=== PATIENT | male | born 1965 | race African-American/Black ===

== ENCOUNTER 2018-04-09 04:55 | Inpatient (IN) | payer MEDICARE, OTHER ==
[~2018-04-09] VITALS: Ht 170.2 cm; Wt 72.6 kg
[2018-04-09] VITALS (32 sets, daily range): BP systolic 107–157; BP diastolic 71–95
[2018-04-09] MEDS ORDERED: LORazepam Inj 2mg/ml 1ml ONE (05:35)
[2018-04-09] MEDS ORDERED: DiphenhydrAMINE 50mg/ml Inj ONE (05:36)
[2018-04-09] MEDS ORDERED: Haloperidol 5mg/ml Inj ONE (05:36)
[2018-04-09] MEDS ORDERED: LORazepam Inj 2mg/ml 1ml IM ONE (05:45)
[2018-04-09] MEDS ORDERED: DiphenhydrAMINE 50mg/ml Inj IM ONE (05:45)
[2018-04-09] MEDS ORDERED: Haloperidol 5mg/ml Inj IM ONE (05:45)
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
[2018-04-09] MEDS ORDERED: Midazolam 2mg/2ml Inj IVP ONE (07:00)
[2018-04-09 07:48] LABS: BASOPHILS % (AUTO) 0.9 % (0.0-2.0); EOSINOPHILS % (AUTO) 1.2 % (0.0-3.0); HEMATOCRIT 42.1 % (42.0-52.0); HEMOGLOBIN 14.4 G/DL (14.2-18.0); LYMPHOCYTES % (AUTO) 24.2 % (20.0-45.0); MEAN CORPUSCULAR VOLUME 97 FL (80-99); MONOCYTES % (AUTO) 6.8 % (1.0-10.0); NEUTROPHILS % (AUTO) 66.9 % (45.0-75.0); PLATELET COUNT 290 K/UL (150-450); RED BLOOD COUNT 4.32 M/UL (4.70-6.10); RED CELL DISTRIBUTION WIDTH 12.6 % (11.6-14.8); WHITE BLOOD COUNT 11.2 K/UL (4.8-10.8)
--- NOTE | 2018-04-09 07:54 | Diagnostic Imaging Report ---
EXAM: CT Head Without Intravenous Contrast CLINICAL HISTORY: AMS TECHNIQUE: Axial computed tomography images of the head/brain without intravenous contrast. CTDI is 70 mGy and DLP is 1500 mGy-cm. One or more of the following dose reduction techniques were used: automated exposure control, adjustment of the mA and/or kV according to patient size, use of iterative reconstruction technique. COMPARISON: None. FINDINGS: Brain: No CT evidence of acute infarct. 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 No acute intracranial hemorrhage. No mass effect or midline shift. Chronic microangiopathic white matter disease. Ventricles: Unremarkable. No ventriculomegaly. Bones/joints: Unremarkable. No acute fracture. Soft tissues: Unremarkable. Sinuses: Mild chronic sinus disease. Mastoid air cells: Unremarkable as visualized. No mastoid effusion. IMPRESSION: No acute findings.
[2018-04-09 08:25] LABS: ANION GAP 9 mmol/L (5-15); BLOOD UREA NITROGEN 11 mg/dL (7-18); CALCIUM 9.1 MG/DL (8.5-10.1); CARBON DIOXIDE 27 MMOL/L (21-32); CHLORIDE 109 MMOL/L (98-107); CREATININE 1.2 MG/DL (0.55-1.30); POTASSIUM 3.9 MMOL/L (3.5-5.1); SODIUM 145 MMOL/L (136-145)
[2018-04-09 08:30] LABS: ALANINE AMINOTRANSFERASE 18 U/L (12-78); ALBUMIN 4.1 G/DL (3.4-5.0); ALKALINE PHOSPHATASE 73 U/L (46-116); ASPARTATE AMINO TRANSFERASE 35 U/L (15-37); BILIRUBIN,TOTAL 0.4 MG/DL (0.2-1.0)
[2018-04-09] MEDS ORDERED: Zolpidem 5mg tab ORAL PRN (17:30)
[2018-04-09] MEDS ORDERED: LORazepam Inj 2mg/ml 1ml IV PRN (17:30)
[2018-04-09] MEDS ORDERED: Milk of Magnesia 30ml Ud ORAL PRN (17:30)
[2018-04-09] MEDS: D5 1/2NS 1,000 ML IV SCH (17:42)
[2018-04-10] VITALS (7 sets, daily range): BP systolic 143–168; BP diastolic 92–111
[2018-04-10] MEDS: D5 1/2NS 1,000 ML IV SCH ×2 (06:30→18:27)
--- NOTE | 2018-04-10 08:17 | History & Physical ---
History and Physical History & Physicial Hp dictated # [id number] Demar Blnaton MD April 10, 2018 08:17
[2018-04-10] MEDS: Thiamine 100mg tab ORAL SCH (08:59)
[2018-04-10] MEDS ORDERED: D5 1/2NS 1000ml IV ONE (09:56)
[2018-04-10] MEDS ORDERED: HYDROcodone/Acetamin 10/325 tab ORAL PRN (15:00)
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
[2018-04-10] MEDS: Lisinopril 20mg tab ORAL SCH (18:26)
[2018-04-11 04:00] VITALS: BP 164/103
[2018-04-11 07:57] VITALS: BP 150/100
[2018-04-11] MEDS: Lisinopril 20mg tab ORAL SCH (08:06)
[2018-04-11] MEDS: Thiamine 100mg tab ORAL SCH (08:07)
[2018-04-11] MEDS: D5 1/2NS 1,000 ML IV SCH (10:00)
--- NOTE | 2018-04-11 11:49 | Diagnostic Imaging Report ---
Indication: pain Right hand pain Findings: 3 views of the right hand were obtained. No acute fracture or malalignment is identified. Articular irregularities are noted involving the MCP joint of the thumb consistent with arthrosis. Similar findings involving several of the distal interphalangeal joints. There is a small avulsion type injury along the dorsal aspect of the second DIP joint. This may be posttraumatic and is probably old. IMPRESSION: No acute injury identified. Mild osteoarthrosis
[2018-04-11 11:56] VITALS: BP 149/90
--- NOTE | 2018-04-11 11:56 | Consultation ---
History of Present Illness General Date patient seen: April 10, 2018 Chief Complaint: Alcohol Intoxication Present Illness HPI 52-year-old male, with history of alcohol dependence and depression who was brought in to the emergency room by paramedics. The patient was intoxicated and confused. the pt was admitted to medical floor for medical stabilization. the pt was not able to provide hx. the pt didn't endorse si/hi. the pt did not endorse psychotic sxs. Allergies: Coded Allergies: No Known Allergies (Unverified , 04/09/18) Patient History Limited by: medical condition History Provided By: Patient, Medical Record, PMD Healthcare decision maker Resuscitation status Full Code Advanced Directive on File Past Medical/Surgical History Past Medical/Surgical History: (1) Acute alcoholic intoxication (2) Drug abuse (3) Alcohol abuse (4) Encephalopathy (5) Altered mental status Review of Systems Psychiatric: Reports: prior hx, anxiety, depressed feelings, emotional problems , hallucinations Physical Exam General Appearance: WD/WN, no apparent distress, confused, agitated Last 24 Hour Vital Signs Date Time Temp Pulse Resp B/P (MAP) Pulse Ox O2 Delivery O2 Flow Rate FiO2 04/11/18 08:06 150/100 04/11/18 07:57 98.1 88 21 150/100 97 Room Air 98.1 04/11/18 04:00 98.1 72 20 164/103 100 98.1 04/10/18 20:00 97.9 76 20 163/111 100 97.9 04/10/18 18:26 168/109 04/10/18 16:13 97.7 04/10/18 16:00 98.8 80 20 168/109 98 Room Air 98.8 04/10/18 15:14 97.7 04/10/18 12:00 97.7 80 20 166/106 98 Room Air 97.7 Intake and Output 04/10/18 04/11/18 19:00 07:00 Intake Total 1025 ml 0 ml Balance 1025 ml 0 ml Intake Oral 200 ml IV Total 825 ml 0 ml # Voids 3 5 # Bowel Movements 1 Height (Feet): 5 Height (Inches): 7.00 Weight (Pounds): 160 Medications Current Medications Medications (Trade) Dose Ordered Sig/Sarah Route PRN Reason Start Time Stop Time Status Last Admin Dose Admin Acetaminophen (Tylenol) 650 mg Q4H PRN ORAL Mild Pain (Pain Scale 1-3) 04/09/18 17:30 05/09/18 17:29 Acetaminophen/ Hydrocodone Bitart ([place] 10/325) 1 tab Q4H PRN ORAL PAIN 4-10 04/10/18 15:00 04/17/18 14:59 04/10/18 15:14 Dextrose (Dextrose 50%) 25 ml STAT PRN IV Hypoglycemia 04/09/18 17:30 05/09/18 17:29 Dextrose (Dextrose 50%) 50 ml STAT PRN IV Hypoglycemia 04/09/18 17:30 05/09/18 17:29 Dextrose/Sodium Chloride 1,000 ml @ 75 mls/hr [id number] IV 04/09/18 18:00 05/09/18 17:59 04/10/18 18:27 Diazepam (Valium) 10 mg Q6H PRN ORAL For Anxiety, 1st choice 04/09/18 23:15 04/16/18 23:14 04/10/18 21:00 Folic Acid (Folate) 1 mg DAILY ORAL 04/10/18 09:00 05/10/18 08:59 04/11/18 08:06 Lisinopril (Prinivil) 20 mg DAILY ORAL 04/10/18 18:00 05/10/18 17:59 04/11/18 08:06 Lorazepam (Ativan 2mg/ml 1ml) 1 mg Q4H PRN IV For Anxiety 04/09/18 17:30 04/16/18 17:29 Magnesium Hydroxide (Mom) 30 ml HSPRN PRN ORAL Constipation 04/09/18 17:30 05/09/18 17:29 Ondansetron HCl (Zofran) 4 mg Q6H PRN IVP Nausea & Vomiting 04/09/18 17:30 05/09/18 17:29 Thiamine HCl (Vitamin B1) 100 mg DAILY ORAL 04/10/18 09:00 05/10/18 08:59 04/11/18 08:07 Zolpidem Tartrate (Ambien) 5 mg HSPRN PRN ORAL Insomnia 04/09/18 17:30 04/16/18 17:29 Assessment/Plan Status: not improved, unchanged Assessment/Plan Alcohol dependence Alcohol intoxication Not at imminent dts -Valium prn -folate -thiamine Bob Martinez M.D. April 11, 2018 11:56
--- NOTE | 2018-04-11 12:00 | General Progress Note ---
Assessment/Plan Status: stable Assessment/Plan Alcohol dependence Alcohol intoxication Not at imminent dts -Valium prn -folate -thiamine -dc when medically stable -the pt does not require psych hospitalization -rec inpatient drug rehab if motivated Subjective Date patient seen: April 11, 2018 Neurologic/Psychiatric: Reports: anxiety, depressed, emotional problems Allergies: Coded Allergies: No Known Allergies (Unverified , 04/09/18) Subjective The pt is alert was able to answer the questions appropriately. The pt stated that he was unable to sleep last night. The pt is not anxious. The pt was drooling. the pt stated that he wants to go back to his transitional living. Objective Last 24 Hour Vital Signs Date Time Temp Pulse Resp B/P (MAP) Pulse Ox O2 Delivery O2 Flow Rate FiO2 04/11/18 08:06 150/100 04/11/18 07:57 98.1 88 21 150/100 97 Room Air 98.1 04/11/18 04:00 98.1 72 20 164/103 100 98.1 04/10/18 20:00 97.9 76 20 163/111 100 97.9 04/10/18 18:26 168/109 04/10/18 16:13 97.7 04/10/18 16:00 98.8 80 20 168/109 98 Room Air 98.8 04/10/18 15:14 97.7 04/10/18 12:00 97.7 80 20 166/106 98 Room Air 97.7 Intake and Output 04/10/18 04/11/18 19:00 07:00 Intake Total 1025 ml 0 ml Balance 1025 ml 0 ml Intake Oral 200 ml IV Total 825 ml 0 ml # Voids 3 5 # Bowel Movements 1 Height (Feet): 5 Height (Inches): 7.00 Weight (Pounds): 160 General Appearance: WD/WN, no apparent distress, alert Neurologic: oriented x 3, responsive, depressed affect Bob Martinez M.D. April 11, 2018 12:00
[2018-04-11 15:55] VITALS: BP 148/96
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
== END 2018-04-11 17:10 | disposition home or self-care (01) | DRG 72 ==
LOC: EDBD 04:55 → EMR 05:25 → EDBEDREQ 13:58 → 4E 14:23
DX: G93.49 Other encephalopathy (principal); F10.229 Alcohol dependence with intoxication, unspecified; F14.10 Cocaine abuse, uncomplicated; F10.20 Alcohol dependence, uncomplicated
CPT/HCPCS: 36415; 70450; 80053; 80307; 80329; 85025; 92610; 99285; J2250